=== PATIENT | female | born 1990 | race Two or more races ===

== ENCOUNTER 2021-03-25 18:13 | Emergency (ER) | payer SELFPAY ==
[~2021-03-25] VITALS: Ht 165.1 cm; Wt 93.0 kg
[2021-03-25] MEDS ORDERED: ACETAMINOPHEN 325MG TABLET PO ONE (18:45)
[2021-03-25] MEDS ORDERED: IBUPROFEN 600MG TABLET PO ONE (18:45)
[2021-03-25] MEDS ORDERED: IBUP-2029 MT (21:21)
[2021-03-25 21:40] VITALS: BP 121/79
== END 2021-03-25 21:40 | disposition home or self-care (01) ==
LOC: ER 18:13
DX: S82.491A Other fracture of shaft of right fibula, initial encounter for closed fracture (principal); X50.1XXA Overexertion from prolonged static or awkward postures, initial encounter; Y93.01 Activity, walking, marching and hiking; Y92.9 Unspecified place or not applicable
CPT/HCPCS: 29515; 73610; 99283